=== PATIENT | male | born 1985 | race Caucasian/White ===

== ENCOUNTER 2023-05-02 09:53 | Emergency (ER) | payer BC, SELFPAY ==
--- NOTE | 2023-05-02 10:05 | ED.GENADULT ---
HPI - General Adult General Chief complaint: Skin/Abscess/Foreign Body Stated complaint: YELLOW SPOT ON R ARM/NOSEBLEED Source: patient and RN notes reviewed History of Present Illness HPI narrative: 38 yo M presents to urgent care with complaints of a yellow spot on his FA that he first noticed while in the shower this morning. Denies any pain to the area. Denies any known injury. Pt also states he had a nose bleed in the shower that resolved shortly after. Denies any fevers, chills, GALICIA, dizziness, chest pain, SOB, or vomiting. Pt is not anticoagulants. Related Data Home Medications Medication Instructions Recorded Confirmed No Home Medications 05/02/23 05/02/23 Allergies Allergy/AdvReac Type Severity Reaction Status Date / Time No Known Allergies Allergy Verified 05/02/23 10:11 Review of Systems Review of Systems: CONSTITUTIONAL: Denies fever, chills, or sweats. EYES: Denies visual changes, redness, or discharge. ENT: had a nose bleed this morning that resolved CARDIOVASCULAR: Denies chest pain, palpitations, or edema. RESPIRATORY: Denies cough or dyspnea. GASTROINTESTINAL: Denies abdominal pain, nausea, vomiting, or diarrhea. GENITOURINARY: Denies dysuria or hematuria. SKIN: yellow spot on arm MUSCULOSKELETAL: Denies back pain, joint pain, or myalgia. NEUROLOGIC: Denies headache, numbness, or weakness. Pertinent positives per HPI. PMFSH Comments At the time of my signature, I reviewed and agree with the nursing past medical, surgical, social, and family history. There is no relevant family history pertinent to the patient complaint. Exam Narrative: GENERAL: This is a well-nourished, well-developed patient, in no apparent distress. HEAD: normocephalic, atraumatic. EYES: Sclera clear/white. Vision is grossly intact. EARS: External ears normal, auditory canals clear and without drainage, TMs normal without perforation. Hearing grossly intact. NOSE: External nose normal with no obvious nasal discharge, nares without redness, no rhinorrhea. THROAT: Mucous membranes moist, posterior pharynx clear. NECK: Neck supple, non-tender without lymphadenopathy, masses or thyromegaly. CARDIOVASCULAR: Regular rate RESPIRATORY: No respiratory distress SKIN: quarter size, light yellow, bruise noted to right FA NEURO: awake, alert, and oriented to person, place and time. There were no obvious focal neurologic abnormalities. EXTREMITIES: No clubbing, cyanosis, or edema. No joint tenderness, effusion, or edema noted. BACK: Nontender without deformity or crepitus. No flank tenderness. Course Course Level of Care: Express Care Visit Vital Signs Vital signs: Vital Signs Temperature 97.3 F L 05/02/23 10:10 Pulse Rate 78 05/02/23 10:10 Respiratory Rate 16 05/02/23 10:10 Blood Pressure 141/92 H 05/02/23 10:10 Pulse Oximetry 100 05/02/23 10:10 Temperature 97.3 F L 05/02/23 10:10 Pulse Rate 78 05/02/23 10:10 Respiratory Rate 16 05/02/23 10:10 Blood Pressure 141/92 H 05/02/23 10:10 Pulse Oximetry 100 05/02/23 10:10 reviewed Medical Decision Making MDM Narrative Medical decision making narrative: If your nose starts to bleed again and you cant get it to stop, go the ER. Differential Diagnosis Differential Diagnosis: ecchymosis, hematoma, cellulitis, epistaxis Vital Signs Vital Signs: Vital Signs Temperature 97.3 F L 05/02/23 10:10 Pulse Rate 78 05/02/23 10:10 Respiratory Rate 16 05/02/23 10:10 Blood Pressure 141/92 H 05/02/23 10:10 Pulse Oximetry 100 05/02/23 10:10 Temperature 97.3 F L 05/02/23 10:10 Pulse Rate 78 05/02/23 10:10 Respiratory Rate 16 05/02/23 10:10 Blood Pressure 141/92 H 05/02/23 10:10 Pulse Oximetry 100 05/02/23 10:10 Critical Care Time Critical Care Time Critical Care Time: No Discharge Plan Discharge Clinical Impression: Ecchymosis Patient Disposition: Home, Self-Care Condition: Stable
[2023-05-02 10:10] VITALS: BP 141/92; PULSE 78; RESP 16; TEMP 36.3; O2SAT 100
== END 2023-05-02 10:20 | disposition home or self-care (01) ==
PROVIDERS: Emergency Provider Nurse Practitioner Family
DX: R58 Hemorrhage, not elsewhere classified (principal)
CPT/HCPCS: 99211; G0463

== ENCOUNTER 2023-11-14 08:41 | Emergency (ER) | payer BC, SELFPAY ==
--- NOTE | ~2023-11-14 | XR_ITS ---
EXAMINATION: XR abdomen obstructive series DATE: 11/14/2023 09:49 INDICATION: Low abdominal pain. Diarrhea. Bloating. TECHNIQUE: Upright and supine views of the abdomen on 4 radiographs were obtained. COMPARISON: None. FINDINGS: There are no dilated loops of bowel. There is a small volume of stool in the colon. No free intraperitoneal gas. Surgical clips in the right upper quadrant are likely from cholecystectomy. IMPRESSION: 1. Normal bowel gas pattern. Reviewed, dictated and finalized at location A.
[2023-11-14 08:53] VITALS: BP 131/89; PULSE 89; RESP 16; TEMP 36.1; O2SAT 100
--- NOTE | 2023-11-14 09:25 | ED.NAVMDI ---
HPI - Nausea/Vomiting/Diarrhea General Chief complaint: Nausea/Vomiting/Diarrhea Stated complaint: Diarrhea/Body Pain Time Seen by Provider: 11/14/23 09:10 Source: patient Mode of arrival: ambulatory Limitations: no limitations History of Present Illness HPI Narrative: Jeremiah is a 38-year-old male patient presenting to the clinic today with complaints of nausea, diarrhea, and body aches x2 days. He reports symptoms started with nausea and diarrhea and yesterday developed body achiness. He feels as though he may be dehydrated but he has been trying to drink plenty of water. He denies any known fever. He denies any vomiting, urinary symptoms, or blood in his stool. Today he has not had any diarrhea but feels constipated with lower abdominal pain cramping and bloating. Related Data Allergies Allergy/AdvReac Type Severity Reaction Status Date / Time No Known Allergies Allergy Verified 11/14/23 08:53 Review of Systems Review of Systems: Pertinent positives per HPI. Patient denies any fever, chills, rash, headache, visual changes, dizziness, cough, runny nose, sore throat, shortness of breath, chest pain, palpitations, vomiting, or any urinary issues. PMFSH Comments At the time of my signature, I reviewed and agree with the nursing past medical, surgical, social, and family history. There is no relevant family history pertinent to the patient complaint. Exam Narrative: General: Well-developed, morbidly obese, in no apparent distress. Head: Normocephalic, atraumatic. Cardio: Regular rate and rhythm, s1 and s2 normal, no murmur appreciated. Resp: Clear to auscultation bilaterally, no rhonchi, rales, wheezing or rubs. Abdomen: Soft, pliable, bowel sounds present in all quadrants, tender to palpation over the lower abdomen, no organomegly, no CVAT tenderness. Course Course Emergency Course: Portions of this record may have been created with voice recognition software. Level of Care: Express Care Visit Vital Signs Vital signs: Vital Signs Temperature 36.1 C L 11/14/23 08:53 Pulse Rate 89 11/14/23 08:53 Respiratory Rate 16 11/14/23 08:53 Blood Pressure 131/89 11/14/23 08:53 Pulse Oximetry 100 11/14/23 08:53 Temperature 36.1 C L 11/14/23 08:53 Pulse Rate 89 05/19/24 08:53 Respiratory Rate 16 11/14/23 08:53 Blood Pressure 131/89 11/14/23 08:53 Pulse Oximetry 100 11/14/23 08:53 Vital signs reviewed MDM - Nausea/Vomiting/Diarrhea MDM Narrative Medical decision making narrative: At the time of visit patient is resting comfortably on the exam table. Patient appears to be nontoxic. Labs: Influenza testing was obtained and negative in the clinic today. Diagnostics: Obstructive series abdomen was performed and shows normal bowel gas pattern Plan: Supportive measures were discussed with the patient and they voiced understanding discharge instructions and agrees to treatment plan. Return precautions reviewed Differential Diagnosis Differential diagnosis: Likely traveler's diarrhea, food poisoning, gastroenteritis, clostridium difficile infection, drug-induced nausea and vomiting and dehydration Imaging Data Radiologist's impression: ITS Impressions Abdomen X-Ray 11/14/23 09:52 IMPRESSION: 1. Normal bowel gas pattern. Discharge Plan Discharge Clinical Impression: Gastroenteritis Patient Disposition: Home, Self-Care Condition: Stable Instructions: Antibiotic Form, Gastroenteritis (ED) Additional Instructions: Influenza testing was negative in the clinic today. Take prescription medications only as prescribed-ondansetron for nausea May take [id number] Gas-X for bloating Increase fluids and stay well hydrated Tylenol/motrin for pain/fever Flonase and OTC antihistamines as directed Vicks vapor rub to open sinuses Sinus rinses for congestion Cepacol spray, cough drops, throat lozenges, warm tea with honey/lemon, gar
== END 2023-11-14 10:14 | disposition home or self-care (01) ==
PROVIDERS: Emergency Provider Nurse Practitioner Family
DX: K52.9 Noninfective gastroenteritis and colitis, unspecified (principal)
CPT/HCPCS: 74019; 87804; 99213; G0463

== ENCOUNTER 2024-01-16 08:03 | Emergency (ER) | payer BC, SELFPAY ==
[2024-01-16 08:26] VITALS: BP 122/84; PULSE 113; RESP 16; TEMP 36.3; O2SAT 100
[2024-01-16 08:48] LABS: EDINFLUASCREEN Negative; EDINFLUBSCREEN Negative; EDSTREPNEGPOS1 Presumptive Negative
--- NOTE | 2024-01-16 08:48 | ED.URI ---
HPI - URI/Sore Throat General Chief Complaint: Upper Respiratory Infection Stated Complaint: sore throat,chills,headache,cough Time Seen by Provider: 01/16/24 08:48 Source: patient, RN notes reviewed and old records reviewed Mode of arrival: ambulatory Limitations: no limitations History of Present Illness HPI Narrative: patient presents with 2-3 day history of chills, sweats, sore throat, cough, runny nose. [place], is exposed to many sick people throughout the day. He is unsure if he has been running a fever. He he does report some fatigue. He denies any GI symptoms. He voices no other concerns or complaints at this time. He is not short of breath. Related Data Allergies Allergy/AdvReac Type Severity Reaction Status Date / Time No Known Allergies Allergy Verified 01/16/24 08:23 Review of Systems Review of Systems: All systems reviewed & are unremarkable except as noted in HPI and below Constitutional: Constitutional: Reports no additional constitutional complaints, Reports body ache(s), Reports chills and Reports fatigue ENT: Reports system reviewed and no additional complaints, except as documented, Reports nasal congestion, Reports nasal discharge and Reports post nasal drip Cardiovascular: Cardiovascular: Reports no additional cardiovascular complaints Respiratory: Respiratory: Reports no additional respiratory complaints and Reports cough Gastrointestinal: Gastrointestinal: Reports no additional gastrointestinal complaints PMFSH Comments At the time of my signature, I reviewed and agree with the nursing past medical, surgical, social, and family history. There is no relevant family history pertinent to the patient complaint. Exam Const: General: cooperative, no acute distress, alert and awake Orientation/consciousness: oriented to person, oriented to place and oriented to time HENMT: Head: normal to inspection Ears: TM's normal bilaterally Mouth: Yes moist mucous membranes Throat: posterior oropharynx abnormal erythema; no exudates and postnasal drainage Resp: Effort & Inspection: normal respiratory effort and able to speak in complete sentences Auscultation: clear to auscultation bilaterally, no crackles, no rales, no rhonchi and no wheezes Cardio: Palpation: normal PMI Rate: regular rate Rhythm: regular rhythm Heart sounds: S1 normal heart sound present and S2 normal heart sound present Other: Heart rate 92 on auscultation Neuro: General: oriented to person, oriented to place and oriented to time Cranial nerves: Yes CN's II-XII intact bilaterally Psych: Appearance: grossly normal Thought process: Normal thought process present Insight: Good insight present (Psych) Judgement: Good judgement present (Psych) Course Course Level of Care: Express Care Visit Vital Signs Vital signs: Vital Signs Temperature 97.4 F L 01/16/24 08:26 Pulse Rate 113 H 01/16/24 08:26 Respiratory Rate 16 01/16/24 08:26 Blood Pressure 122/84 01/16/24 08:26 Pulse Oximetry 100 01/16/24 08:26 Temperature 97.4 F L 01/16/24 08:26 Pulse Rate 113 H 01/16/24 08:26 Respiratory Rate 16 01/16/24 08:26 Blood Pressure 122/84 01/16/24 08:26 Pulse Oximetry 100 01/16/24 08:26 Reviewed MDM - URI/Sore Throat MDM Narrative Medical decision making narrative: nontoxic appearing. Negative COVID, negative flu, negative strep. Throat culture sent. Exam is consistent with URI. Supportive care measures discussed, Tessalon Perles prescription sent, work note provided. Emergency department for new or worse symptoms. Follow up with primary care provider Discharge instructions reviewed with patient, as well as provided in writing per nursing staff. The instructions also include specific and strict return/GO TO THE ER as well as f/u information. All questions have been answered, and the patient deny any further questions with discharge and discharge plan. Some parts of this d
== END 2024-01-16 08:58 | disposition home or self-care (01) ==
PROVIDERS: Emergency Provider Nurse Practitioner Family
DX: J06.9 Acute upper respiratory infection, unspecified (principal); Z20.822 Contact with and (suspected) exposure to COVID-19
CPT/HCPCS: 87081; 87426; 87804; 87880; 99213; G0463

== ENCOUNTER 2024-01-23 08:07 | Emergency (ER) | payer BC, SELFPAY ==
[2024-01-23 08:21] VITALS: BP 136/90; PULSE 84; RESP 16; TEMP 36.1; O2SAT 100
--- NOTE | 2024-01-23 08:22 | ED.URI ---
HPI - URI/Sore Throat General Chief Complaint: Upper Respiratory Infection Stated Complaint: CHILLS/SHAKING/DIZZY/CONGESTION/WEAKNESS Time Seen by Provider: 01/23/24 08:22 Source: patient, RN notes reviewed and old records reviewed Mode of arrival: ambulatory Limitations: no limitations History of Present Illness HPI Narrative: 38 year old male presents to express care with complaints of having chills, feeling cold, and shaking, dizziness and feels weak since yesterday while at work and had to go home. Patient was seen in clinic on the of this month and was tested for Flu, Covid and strep with all tests negative. Patient has been taking Ibuprofen, Mucinex, and Benzonatate for his symptoms, reports that he did have 3 days of fever up to 100.8F after was seen first time in clinic, and had been feeling better and went back to work on Wednesday. Patient that cough is at times productive of yellowish mucous, denies any shortness of breath. MD elicited complaint: cough and other (chills, feels shaky, dizzy, feels weak) Onset (ago): day(s) (increased symptoms since yesterday, seen for similar symptoms on 01/16/2024 all neg tests) Severity: moderate Able to tolerate fluids by mouth: Yes Treatments prior to arrival: ibuprofen and other (Mucinex, benzonatate) Related Data Allergies Allergy/AdvReac Type Severity Reaction Status Date / Time No Known Allergies Allergy Verified 01/23/24 08:58 Review of Systems Review of Systems: CONSTITUTIONAL: Reports malaise, chills, sweats, no recent fever. EYES: Denies visual changes, redness, or discharge. ENT: Reports rhinorrhea, congestion, no sinus pain, no otalgia and no recent sore throat. CARDIOVASCULAR: Denies chest pain, palpitations, or edema. RESPIRATORY: Reports cough.? Denies dyspnea. GASTROINTESTINAL: Denies abdominal pain, nausea, vomiting, diarrhea SKIN: Denies rash or itching. MUSCULOSKELETAL: Denies myalgia. NEUROLOGIC: Denies headache. All systems reviewed & are unremarkable except as noted in HPI and below PMFSH Family History Family History Mother Diabetes mellitus Social History Social History Smoking status: Never smoker Alcohol intake: never Substance use type: does not use Gender identity (if verbalized by the patient): Male Comments At time of signature, agree with nursing past medical, surgical, social and family history. There is no relevant family history pertinent to the presenting complaint Exam Narrative: GENERAL: Well-appearing, well-nourished,obese and in no acute distress. HEAD: Normocephalic EYES: PERRLA, conjunctivae clear ENT: Nares clear, turbinates edematous and erythematous, clear discharge. Mucous membranes moist. TM pearly castillo with dull light reflex bilaterally; no tragal tenderness. Oropharynx erythematous without lesions. Tonsils not enlarged and without exudate, no drooling, no hoarseness, no trismus, uvula midline.post nasal drainage NECK: Supple. No lymphadenopathy CHEST: Clear to auscultation, breath sounds equal. No wheezing, rhonchi, rales, or stridor. No respiratory distress, speaks in full sentences. cough noted reports is productive at times,SAO2 100% on room air HEART: Regular rate and rhythm. No murmur heard. SKIN: Warm, dry, no rash. NEURO: Alert and oriented x3. PSYCH: Normal mood and affect Course Course Emergency Course: Patient is aware of diagnosis, understands and agrees to treatment plan.? Anticipatory guidance given.? Patient agrees to follow-up as directed and is aware of reasons to seek care at the emergency department. Portions of this record may have been created with voice recognition software Level of Care: Express Care Visit Vital Signs Vital signs: Reviewed MDM - URI/Sore Throat MDM Narrative Medical decision making narrative: Differential diagnosis consider
[2024-01-23 08:43] LABS: EDINFLUASCREEN Negative; EDINFLUBSCREEN Negative
== END 2024-01-23 08:54 | disposition home or self-care (01) ==
PROVIDERS: Emergency Provider Registered Nurse
DX: J06.9 Acute upper respiratory infection, unspecified (principal); R05.9 Cough, unspecified; Z20.822 Contact with and (suspected) exposure to COVID-19
CPT/HCPCS: 87426; 87804; 99213; G0463

== ENCOUNTER 2024-05-14 09:28 | Emergency (ER) | payer BC, SELFPAY ==
--- NOTE | 2024-05-14 10:09 | ED_ITS ---
HPI - Extremity Problem General Chief complaint: Extremity Problem,Nontraumatic Stated complaint: Bilateral Feet Pain Time Seen by Provider: 05/14/24 10:15 Source: patient, RN notes reviewed and old records reviewed Mode of arrival: ambulatory Limitations: no limitations History of Present Illness HPI Narrative: 39-year-old male presents to the [facility] with bilateral feet that started about 1 week ago. Patient works on his feet for long periods of time. States that he did get a new pair of shoes, does wear insoles. Pain is noted to the mid dorsal foot it's bilaterally. No treatment prior to arrival. No bruising or swelling noted. Positive pedal pulses are noted. No swelling. Onset (ago): week(s) (1) Related Data Home Medications Medication Instructions Recorded Confirmed No Home Medications 05/14/24 05/14/24 Allergies Allergy/AdvReac Type Severity Reaction Status Date / Time No Known Allergies Allergy Verified 05/14/24 10:12 Review of Systems Review of Systems: All systems reviewed & are unremarkable except as noted in HPI and below Constitutional: Constitutional: Reports no additional constitutional complaints ENT: Reports system reviewed and no additional complaints, except as documented Cardiovascular: Cardiovascular: Reports no additional cardiovascular complaints, Denies chest pain and Denies dyspnea Respiratory: Respiratory: Reports no additional respiratory complaints, Denies chest congestion, Denies cough and Denies dyspnea Gastrointestinal: Gastrointestinal: Reports no additional gastrointestinal complaints, Denies abdominal pain, Denies nausea and Denies vomiting Musculoskeletal: Musculoskeletal: Reports as per HPI Integumentary/Breasts: Skin/Breast: Reports system reviewed and no additional complaints, except as docu PMFSH Family History Family History Mother Diabetes mellitus Social History Social History Smoking status: Never smoker Alcohol intake: never Substance use type: does not use Gender identity (if verbalized by the patient): Male Comments At the time of my signature, I reviewed and agree with the nursing past medical, surgical, social, and family history. There is no relevant family history pertinent to the patient complaint. Exam Const: General: cooperative, healthy appearing, comfortable, no acute distress, well developed, alert and well nourished Nutritional Appearance: well nourished Orientation/consciousness: patient oriented x3 Limitations: no limitations HENMT: Head: normal to inspection Ears: hearing grossly normal bilaterally and external ears normal Face/Nose/Sinus: Normal external nose present, normal facial exam and face symmetric Face and sinus: normal facial exam and face symmetric Eyes: General: appearance normal, both eyes and all related structures Alignment and Position: alignment normal Periorbital: periorbital findings normal Neck: Neck: normal visual inspection, full ROM, no lymphadenopathy and no meningeal signs Chest: Chest palpation & inspection: normal inspection of the chest Resp: Effort & Inspection: normal respiratory effort and able to speak in complete sentences Cardio: Rate: regular rate Skin: General skin exam: normal color and no rashes or lesions noted Lesions: no lesions Rashes: no rashes Wounds: no wounds Neuro: General: patient oriented x3, gait normal, tone normal, moves all extremities and no meningeal signs Cognition (Neuro): normal cognition Speech: normal speech Gait exam (Neuro): Normal gait present Extrem: General: normal to inspection, full ROM, capillary refill normal and normal gait Right lower extremity: foot Details: normal capillary refill, tenderness (Dorsal midfoot), toes with normal ROM, no edema and vascular exam Details: dorsalis pedis pulse present and normal capillary refill; no abrasion, no laceration and no ecchymosis Left lower extremity: foot Details: normal capillary refill, tenderness (Dorsal midfoot foot), toes with normal ROM, no edema and vascular exam Details: dorsalis pedis pulse present and normal capillary refill; no ecchymosis and no puncture wound Other: Patient with bilateral flat feet Psych: Appearance: grossly normal and well kempt Mental Status: mental status grossly normal Speech and movement: Normal speech and movement present and Clear speech present Affect: normal affect Attitude: cooperative Course Course Level of Care: Express Care Visit Vital Signs Vital signs: Vital Signs Temperature 98.0 F 05/14/24 10:14 Pulse Rate 88 05/14/24 10:14 Respiratory Rate 16 05/14/24 10:14 Blood Pressure 147/88 H 05/14/24 10:14 Pulse Oximetry 100 05/14/24 10:14 Oxygen Delivery Room Air 05/14/24 10:14 Temperature 98.0 F 05/14/24 10:14 Pulse Rate 88 05/14/24 10:14 Respiratory Rate 16 05/14/24 10:14 Blood Pressure 147/88 H 05/14/24 10:14 Pulse Oximetry 100 05/14/24 10:14 Oxygen Delivery Room Air 05/14/24 10:14 Reviewed MDM - Extremity (Nontraumatic) MDM Narrative Medical decision making narrative: Patient with 1 week history of bilateral feet pain. No trauma. No erythema, ecchymosis noted. Patient is sitting comfortably in exam room nontoxic, vitals stable except blood pressure mildly elevated. X-rays are not needed at this time due to both feet increased pain as he stands. Patient with flat feet. No trauma. Patient appropriate for outpatient treatment and follow-up with podiatry Discharge instructions reviewed with patient, as well as provided in writing per nursing staff. The instructions also include specific and strict return/GO TO THE ER as well as f/u information. All questions have been answered, and the patient deny any further questions with discharge and discharge plan. Some parts of this dictation were generated by voice recognition software and may contain typographical and/or grammatical inaccuracies. Differential Diagnosis Differential diagnosis: Likely other (Arthritis, flat feet) Critical Care Time Critical Care Time Critical Care Time: No Discharge Plan Discharge Clinical Impression: Arthralgia of both feet Patient Disposition: Home, Self-Care Condition: Stable Instructions: Antibiotic Form, Arthralgia (ED) Additional Instructions: Wear good supportive shoes at all times. Ice should be applied to help reduce pain and swelling. It can be used for 20 to 30 minutes, every 2-3 hours while awake. Do not apply ice directly to your skin. You can alternate ibuprofen 600mg and Tylenol 650mg every 4 hours as needed for pain Please schedule a follow-up visit with your personal physician for further evaluation and treatment within 2 weeks especially if symptoms persist. Today your blood pressure was 147/88. Is recommended you follow-up with primary care provider for further evaluation, testing and treatment If you are having a hard time finding a physician please call our [facility] liaison at [phone]. Follow-up with artificial insemination technician for further evaluation of your bilateral foot pain. For new or worsening symptoms go directly to the emergency room Patient Language: Azeri Prescriptions: No Action No Home Medications Follow-up/Referrals: Harman Bowen Jr., DPM [Physician] - Ale Jensen DO [Physician] - PHYSICIAN,STEM DRYER MAINTAINER [Primary Care Provider] - Jayce Pineda DPM [Physician] - Stand Alone Forms: Work/School Release IP Time of Disposition: 10:31
[2024-05-14 10:14] VITALS: BP 147/88; PULSE 88; RESP 16; TEMP 36.7; O2SAT 100
== END 2024-05-14 10:33 | disposition home or self-care (01) ==
PROVIDERS: Emergency Provider Nurse Practitioner
DX: M25.572 Pain in left ankle and joints of left foot (principal); M25.571 Pain in right ankle and joints of right foot
CPT/HCPCS: 99211; G0463

== ENCOUNTER 2024-09-25 18:52 | Emergency (ER) | payer BC, SELFPAY ==
--- OUTSIDE RECORDS SUMMARY | 2024-09-25 18:56 | XMS_ITS | Clinical Summary ---
Author [place] [facility] [place] [address] [place] [id number] Care Team Providers Care Sustainable Products Marketing Manager Name Role Phone Unknown, Notinfile Primary Care Provider Unavail able Allergies No known active allergies Medications ondansetron ODT (ZOFRAN-ODT) 8 mg disintegrating tablet DISSOLVE 1 TABLET BY MOUTH EVERY 8 HOURS NEEDED FOR NAUSEA AND VOMITING 3 Active predniSONE (DELTASONE) 20 mg tablet TAKE 3 TABLETS BY MOUTH ONCE DAILY FOR 5 DAYS 3 Active tobramycin-dexAMETH asone (TOBRADEX) ophthalmic solution INSTILL 2 DROPS INTO AFFECTED EYE(S) EVERY 4 HOURS FOR 7 DAYS 3 Active Active Problems No known active problems Social History Tobacco Use Types Packs/Day Years Used Date Smoking Tobacco: Never Assessed Sex and Gender Information Value Date Recorded Sex Assigned at Not on file Legal Sex Male 11:36 AM CDT Gender Identity Not on file Sexual Orientation Not on file Obstetrics History Last Filed Vital Signs Vital Sign Reading Time Taken Comments Blood Pressure 110/76 03/12/2023 12:00 PM CDT Pulse 94 03/12/2023 12:00 PM CDT Temperature 36.9 C (98.4 F) 03/12/2023 12:00 PM CDT Respiratory Rate - - Oxygen Saturation 98% 03/12/2023 12:00 PM CDT Inhaled Oxygen Concentration - - Weight 145.2 kg (320 lb) 03/12/2023 12:00 PM CDT Height 177.8 cm (5' 10 ) 03/12/2023 12:00 PM CDT Body Mass Index 45.92 03/12/2023 12:00 PM CDT Plan of Treatment Health Maintenance Due Date Last Done Comments Depression Screening 1986 Hepatitis C Screening 1986 DTaP/Tdap/Td Vaccine (1 - Tdap) 1997 Varicella Vaccines (1 of 2 - 13+ 2-dose series) 1999 Hepatitis B Screening 2004 Regular Well Visit/Exam 18-64 2004 Influenza Vaccine (#1) 2024 HPV Vaccines Aged Out No longer eligi ble based on patient's age to complete this topic Pneumococcal vaccine <65 Aged Out No longer eligible based on patient's age to complete this topic [place] Care Teams Sustainable Products Marketing Manager Relationship Specialty Start Date End Date Unknown, Notinfile PCP - General 03/12/23
--- OUTSIDE RECORDS SUMMARY | 2024-09-25 18:56 | XMS_ITS | Referral Summary ---
Author Organization [facility] [place] [address] [place] Address [address] [place] [id number] Care Team Providers Care Executive Admin Name Role Phone Unknown, Notinfile Primary Care [...] on file Sexual Orientation Not on file Last Filed Vital Signs Vital Sign Reading [...] 03/12/2023 12:00 PM CDT Plan of Treatment Not on file [place] Care Teams Executive Admin Relationship Specialty Start Date End Date Unknown, Notinfile PCP - General 03/12/23
--- NOTE | 2024-09-25 18:58 | ED.URI ---
HPI - URI/Sore Throat General Chief Complaint: Upper Respiratory Infection Stated Complaint: Sore throat, headache, congestion Time Seen by Provider: 09/25/24 18:59 History of Present Illness HPI Narrative: 39 y/o male presented for c/o sore throat, headache, body aches, sinus pressure/congestion, cough, fever/chills. Onset 0030 today. Denies sob, wheezing, n/v/d. Took ibuprofen. Related Data Home Medications ?Medication ?Instructions ?Recorded ?Confirmed ?Last Taken ?Type No Home Medications 05/14/24 09/25/24 Unknown History Allergies Allergy/AdvReac Type Severity Reaction Status Date / Time No Known Allergies Allergy Verified 09/25/24 18:59 Review of Systems Review of Systems: ROS per HPI [facility] Family History Family History Mother Diabetes mellitus Social History Social History Smoking status: Never smoker Alcohol intake: never Substance use type: does not use Gender identity (if verbalized by the patient): Male Exam Narrative: GENERAL: well-appearing, no acute distress. EYES: conjunctivae clear ENT: Mucous membranes moist. TMs pearly castillo with normal light reflex bilaterally; no tragal tenderness. Oropharynx erythematous without lesions. Tonsils absent. No drooling, no hoarseness, no trismus, uvula midline. No tripod positioning, hot potato voice, or soft palate swelling. NECK: Supple. No lymphadenopathy CHEST: Clear to auscultation, breath sounds equal. No respiratory distress, speaks in full sentences. HEART: Regular rate and rhythm. SKIN: Warm, dry NEURO: Alert and oriented x3. Course Course Emergency Course: Patient is aware of diagnosis, understands and agrees to treatment plan. Anticipatory guidance given. Patient agrees to follow-up as directed and is aware of reasons to seek care at the emergency department. Portions of this record may have been created with voice recognition software Level of Care: Express Care Visit Vital Signs Vital signs: Vital Signs Temperature 97.0 F L 09/25/24 18:59 Pulse Rate 90 09/25/24 18:59 Respiratory Rate 16 09/25/24 18:59 Blood Pressure 124/85 09/25/24 18:59 Pulse Oximetry 99 09/25/24 18:59 Oxygen Delivery Room Air 09/25/24 18:59 Temperature 97.0 F L 09/25/24 18:59 Pulse Rate 90 09/25/24 18:59 Respiratory Rate 16 09/25/24 18:59 Blood Pressure 124/85 09/25/24 18:59 Pulse Oximetry 99 09/25/24 18:59 Oxygen Delivery Room Air 09/25/24 18:59 MDM - URI/Sore Throat MDM Narrative Medical decision making narrative: neg flu covid strep result reviewed with pt. Advise supportive treatments. Patient is appropriate for outpatient treatment and follow-up. Differential Diagnosis Differential diagnosis: Likely upper respiratory infection, viral infection and pharyngitis Discharge Plan Discharge Clinical Impression: Upper respiratory infection Patient Disposition: Home, Self-Care Condition: Stable Instructions: Antibiotic Form, Upper Respiratory Infection (ED) Additional Instructions: Flu and COVID negative today. It may be too early to detect the virus, therefore we recommend retesting at home in 1-2 days Continue to follow general precautions: frequent handwashing, wear a mask, isolate/social distance, and avoid crowds if you have a fever. You must be fever free for 24 hours without the use of fever reducing medication (Tylenol/ibuprofen) before returning to work/school/crowds. Rapid strep swab was negative today You will be notified in a few days if the culture comes back positive for strep, and appropriate antibiotics will be called in at that time. if symptoms are due to a viral illness, it is not treated with antibiotics. Viral symptoms can be present for up to 10-14 days. Recommendations: Flonase spray and Zyrtec for sinus congestion Cough syrup may cause drowsiness; avoid driving or take it at night time. Tylenol every 8 hours as needed for pain/fever Soft foods, cool liquids, warm tea. Gargle with warm saltwater twice a day. Chloraseptic spray and throat lozenges. Rest and stay hydrated. --Follow up with your PCP --Go to the ER immediately if you cannot swallow your saliva, trouble breathing/wheezing, throat swelling, pain is persistent and severe Patient Language: Austrian Prescriptions: No Action No Home Medications Follow-up/Referrals: UNKNOWN,DOCTOR [Primary Care Provider] - Stand Alone Forms: Work/School Release IP Time of Disposition: 19:24
[2024-09-25 18:59] VITALS: BP 124/85; PULSE 90; RESP 16; TEMP 36.1; O2SAT 99
[2024-09-25 19:22] LABS: EDSTREPNEGPOS1 Negative (Negative)
[2024-09-25 19:26] LABS: EDCOVIDSCREEN Negative (Negative); EDINFLUASCREEN Negative (Negative); EDINFLUBSCREEN Negative (Negative)
== END 2024-09-25 19:26 | disposition home or self-care (01) ==
PROVIDERS: Emergency Provider Nurse Practitioner Family
DX: J06.9 Acute upper respiratory infection, unspecified (principal); Z20.822 Contact with and (suspected) exposure to COVID-19
CPT/HCPCS: 87081; 87426; 87804; 87880; 99213; G0463

== ENCOUNTER 2024-12-17 08:51 | Emergency (ER) | payer BC, SELFPAY ==
--- NOTE | 2024-12-17 08:52 | ED_ITS ---
HPI - Extremity Injury (Lower) General Chief Complaint: Extremity Injury, Lower Stated Complaint: ankle injury Time Seen by Provider: 12/17/24 09:31 Source: patient, RN notes reviewed and old records reviewed Mode of arrival: ambulatory Limitations: no limitations History of Present Illness HPI Narrative: 39-year-old male presents to the [facility] with right ankle pain for 1-2 days. Denies any injury. No redness or swelling noted. No ecchymosis. Patient reports that he does stand all day at work. No treatment prior to arrival Patient called in sick to work Related Data Home Medications ?Medication ?Instructions ?Recorded ?Confirmed ?Last Taken ?Type No Home Medications 05/14/24 12/17/24 Unknown History Allergies Allergy/AdvReac Type Severity Reaction Status Date / Time bee pollen Allergy Mild Swelling Verified 12/17/24 09:06 Review of Systems Review of Systems: All systems reviewed & are unremarkable except as noted in HPI and below Constitutional: Constitutional: Reports no additional constitutional complaints ENT: Reports system reviewed and no additional complaints, except as documented Musculoskeletal: Musculoskeletal: Reports as per HPI, Reports arthralgias (Right ankle) and Denies joint swelling Integumentary/Breasts: Skin/Breast: Reports system reviewed and no additional complaints, except as docu Neurologic: Reports system reviewed and no additional complaints, except as documented PMFSH Family History Family History Mother Diabetes mellitus Social History Social History Smoking status: Never smoker Alcohol intake: never Substance use type: does not use Gender identity (if verbalized by the patient): Male Comments At the time of my signature, I reviewed and agree with the nursing past medical, surgical, social, and family history. There is no relevant family history pertinent to the patient complaint. Exam Const: General: cooperative, healthy appearing, comfortable, no acute distress, well developed, alert and well nourished Nutritional Appearance: well nourished and obese Orientation/consciousness: patient oriented x3 Limitations: no limitations HENMT: Head: normal to inspection Eyes: General: appearance normal, both eyes and all related structures Alignment and Position: alignment normal Neck: Neck: normal visual inspection, full ROM, no lymphadenopathy and no meningeal signs Chest: Chest palpation & inspection: normal inspection of the chest Resp: Effort & Inspection: normal respiratory effort and able to speak in complete sentences Cardio: Rate: regular rate Skin: General skin exam: normal color and no rashes or lesions noted Neuro: General: patient oriented x3, gait normal, moves all extremities and no meningeal signs Cognition (Neuro): normal cognition Speech: normal speech Gait exam (Neuro): Normal gait present Extrem: General: normal to inspection, full ROM, capillary refill normal and normal gait Right lower extremity: ankle Details: tenderness Location: anteriorly, no edema and normal ROM; no swelling, no unusual warmth, no abrasions, no lacerations and no ecchymosis and foot Details: normal capillary refill, toes with normal ROM, no edema and vascular exam Details: dorsalis pedis pulse present and normal capillary refill; no ecchymosis Psych: Appearance: grossly normal and well kempt Mental Status: mental status grossly normal Speech and movement: Normal speech and movement present and Clear speech present Affect: normal affect Attitude: cooperative Course Course Level of Care: Express Care Visit Vital Signs Vital signs: Vital Signs Temperature 97.4 F L 12/17/24 09:01 Pulse Rate 85 12/17/24 09:01 Respiratory Rate 18 12/17/24 09:01 Blood Pressure 135/86 12/17/24 09:01 Pulse Oximetry 100 12/17/24 09:01 Oxygen Delivery Room Air 12/17/24 09:01 Temperature 97.4 F L 12/17/24 09:01 Pulse Rate 85 12/17/24 09:01 Respiratory Rate 18 12/17/24 09:01 Blood Pressure 135/86 12/17/24 09:01 Pulse Oximetry 100 12/17/24 09:01 Oxygen Delivery Room Air 12/17/24 09:01 Reviewed MDM - Extremity Injury (Lower) MDM Narrative Medical decision making narrative: Patient sitting in exam patient is nontoxic, vitals stable. Patient presents with anterior ankle pain for 1-2 days. No treatment prior to arrival X-ray negative Exam with no acute findings Patient appropriate for outpatient treatment with close follow-up. Patient reports that he called in from work today Discharge instructions reviewed with patient, as well as provided in writing per nursing staff. The instructions also include specific and strict return/GO TO THE ER as well as f/u information. All questions have been answered, and the patient deny any further questions with discharge and discharge plan. Some parts of this dictation were generated by voice recognition software and may contain typographical and/or grammatical inaccuracies. Differential Diagnosis Differential diagnosis: Likely ankle sprain and strain and ankle fracture Imaging Data Radiologist's impression: Right ankle Technique: AP, oblique, and lateral views were obtained. Clinical History: Pain Findings: No acute fracture or dislocation is seen. Osseous alignment is anatomic. Ankle mortise and other visualized joint spaces are preserved. Soft tissues are otherwise unremarkable. Impression: Unremarkable right ankle. Critical Care Time Critical Care Time Critical Care Time: No Discharge Plan Discharge Clinical Impression: Acute right ankle pain Patient Disposition: Home Condition: Stable Instructions: Antibiotic Form, Arthralgia (ED) Additional Instructions: Your Xray did not show a fracture. Wear good supportive shoes at all times. Ice should be applied to help reduce swelling. It can be used for 20 to 30 minutes, every 2-3 hours while awake. Do not apply ice directly to your skin. ankle braces or gordy-wraps will help support your injured ankle. You can alternate ibuprofen 600mg and Tylenol 650mg every 4 hours as needed for pain Please schedule a follow-up visit with your personal physician for further evaluation and treatment within 2 weeks especially if symptoms persist. If you are having a hard time finding a physician please call our [facility] group liaison at [phone]. For new or worsening symptoms go directly to the emergency room Patient Language: Luxembourger Prescriptions: No Action No Home Medications Follow-up/Referrals: PHYSICIAN,TOPOLOGY TEACHER [Primary Care Provider] - Stand Alone Forms: Work/School Release IP Time of Disposition: 10:01
[2024-12-17 09:01] VITALS: BP 135/86; PULSE 85; RESP 18; TEMP 36.3; O2SAT 100
== END 2024-12-17 10:06 | disposition home or self-care (01) ==
PROVIDERS: Emergency Provider Nurse Practitioner; Referring Provider Emergency Medicine
DX: M25.571 Pain in right ankle and joints of right foot (principal)
CPT/HCPCS: 73610; 99213; G0463

== ENCOUNTER 2025-05-17 08:07 | Emergency (ER) | payer BC, SELFPAY ==
--- NOTE | 2025-05-17 08:08 | ED.URI ---
HPI - URI/Sore Throat General Chief Complaint: Upper Respiratory Infection Stated Complaint: URI Symptoms Time Seen by Provider: 05/17/25 08:08 Source: patient Mode of arrival: ambulatory Limitations: no limitations History of Present Illness HPI Narrative: Jeremiah is a 40 year old female patient presenting to the clinic today with c/o runny nose, non-productive cough, and sore throat x3 days. Has use cough drops and taken ibuprofen for his symptoms. Rates his pain currently a 3/10. [place] Denies any known fevers, chills, or body aches. Has been having hot flashes. Denies any chest pain or shortness of breath. Related Data Home Medications ?Medication ?Instructions ?Recorded ?Confirmed ?Last Taken ?Type No Home Medications 05/14/24 05/17/25 Unknown History Allergies Allergy/AdvReac Type Severity Reaction Status Date / Time bee pollen Allergy Mild Swelling Verified 05/17/25 08:26 Review of Systems Review of Systems: Pertinent positives per HPI. Patient denies any fever, chills, rash, headache, visual changes, dizziness, cough, shortness of breath, chest pain, palpitations, nausea, vomiting, diarrhea, constipation, abdominal pain, or any urinary issues. [facility] Family History Family History Mother Diabetes mellitus Social History Social History Smoking status: Never smoker Alcohol intake: never Substance use type: does not use Gender identity (if verbalized by the patient): Male Comments At the time of my signature, I reviewed and agree with the nursing past medical, surgical, social, and family history. There is no relevant family history pertinent to the patient complaint. Exam Narrative: General: Well-developed, morbidly obese, in no apparent distress Head: Normocephalic, atraumatic Eyes: Pupils equally round and reactive to light bilaterally, EOM intact, sclera and conjunctive clear, no discharge, lids normal Ears: TMs intact and clear, ear canals clear, no drainage, grossly hearing normal. Nose: Nares patent, clear discharge, mild inflammation, no sinus tenderness. Mouth: Oral pharynx red without lesions or masses, good dentition, MMM. Neck: Supple, trachea midline, no enlargement of anterior or posterior cervical nodes, no thyroid masses or goiter palpable. Cardio: Regular rate and rhythm, s1 and s2 normal, no murmur appreciated. Resp: Clear to auscultation bilaterally, no rhonchi, rales, wheezing or rubs Course Course Emergency Course: Portions of this record may have been created with voice recognition software. Level of Care: Express Care Visit Vital Signs Vital signs: Vital Signs Temperature 36.3 C L 05/17/25 08:20 Pulse Rate 91 05/17/25 08:20 Respiratory Rate 18 05/17/25 08:20 Blood Pressure 139/91 H 05/17/25 08:20 Pulse Oximetry 100 05/17/25 08:20 Oxygen Delivery Room Air 05/17/25 08:20 Temperature 36.3 C L 05/17/25 08:20 Pulse Rate 91 05/17/25 08:20 Respiratory Rate 18 05/17/25 08:20 Blood Pressure 139/91 H 05/17/25 08:20 Pulse Oximetry 100 05/17/25 08:20 Oxygen Delivery Room Air 05/17/25 08:20 Vital signs reviewed MDM - URI/Sore Throat MDM Narrative Medical decision making narrative: At the time of visit patient is resting comfortably on the exam table. Patient appears to be nontoxic. C/o runny nose, cough, and sore throat x3 days. Has use cough drops and taken ibuprofen for his symptoms. Rates his pain currently a 3/10. [place] Denies any known fevers, chills, or body aches. Has been having hot flashes. Denies any chest pain or shortness of breath. On exam patient has no TMs intact and clear, clear nasal drainage, mild anterior turbinate inflammation, oral pharynx red with postnasal drip, lung sounds are clear, heart rates regular rate and rhythm. COVID, flu, and strep test were ordered. Labs: COVID, influenza, and strep test were negative in the clinic today. We will send strep for culture. Plan: I suspect patient has URI/pharyngitis. Work note was given. Supportive measures were discussed with the patient and they voiced understanding discharge instructions and agrees to treatment plan. Return precautions reviewed Differential Diagnosis Differential diagnosis: Likely upper respiratory infection, otitis media, sinusitis, viral infection, bronchitis, influenza, pharyngitis and other (COVID) Lab Data Labs: Lab Results 05/17/25 Range/Units 08:33 POC Grp A Strep Screen Negative (Negative) Discharge Plan Discharge Clinical Impression: Upper respiratory infection Qualifiers: URI type: unspecified URI Qualified Code(s): J06.9 - Acute upper respiratory infection, unspecified Pharyngitis Qualifiers: Pharyngitis/tonsillitis etiology: unspecified etiology Qualified Code(s): J02.9 - Acute pharyngitis, unspecified Patient Disposition: Home Condition: Stable Instructions: Antibiotic Form, Pharyngitis (ED), Cold Symptoms (ED) Additional Instructions: COVID, influenza, and strep test were all negative in the clinic today. We will send strep for culture if this comes back positive we will contact you and place you on antibiotics at that time. Increase fluids and stay well hydrated May take DayQuil/NyQuil for cold/flu symptoms. May take Tylenol or motrin as directed on bottle for pain/fever May use Flonase 1 spray in each nare daily May take OTC antihistamines such as Zyrtec or Claritin daily as directed on bottle May apply Vicks vapor rub to chest to open sinuses Sinus rinses for congestion Cepacol spray, cough drops, throat lozenges, warm tea with honey/lemon, gargle salt water to soothe throat BRAT diet for diarrhea Clear liquids x 24 hours then advance as tolerated for nausea/vomiting Go to the ED if you develop a worsening in your condition- high fever not controlled by Tylenol or Motrin, dehydration, weakness, lethargy, shortness of breath, or chest pain. Follow up with your PCP in 3-5 days if symptoms persist. Patient Language: Ecuadorean Prescriptions: No Action No Home Medications Follow-up/Referrals: PHYSICIAN,COMPOSITION SIDING WORKER [Primary Care Provider, Internal Medicine] Stand Alone Forms: Work/School Release IP Time of Disposition: 08:36 Quality NIHSS Nursing Documentation ED NIHSS nursing documentation: reviewed/agree
[2025-05-17 08:20] VITALS: BP 139/91; PULSE 91; RESP 18; TEMP 36.3; O2SAT 100
[2025-05-17 08:35] LABS: EDSTREPNEGPOS1 Negative (Negative)
[2025-05-17 08:42] LABS: EDCOVIDSCREEN Negative (Negative); EDINFLUASCREEN Negative (Negative); EDINFLUBSCREEN Negative (Negative)
== END 2025-05-17 08:40 | disposition home or self-care (01) ==
PROVIDERS: Emergency Provider Nurse Practitioner Family
DX: J06.9 Acute upper respiratory infection, unspecified (principal); Z20.822 Contact with and (suspected) exposure to COVID-19
CPT/HCPCS: 87081; 87426; 87804; 87880; 99213; G0463